=== PATIENT | female | born 2000 | race Caucasian/White ===

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

== ENCOUNTER 2022-10-18 15:18 | Observation (INO) | payer OTHER, SELFPAY ==
[2022-10-18] MEDS ORDERED: Dicyclomine 20 MG/2 ML VIAL ONE (15:39)
[2022-10-18 15:53] LABS: #Monocytes 0.5 thou/uL (0.11-0.59); #Neutrophils 3.6 thou/uL (1.40-6.50); %Basophils 0.2 % (0.0-1.0); %Eosinophils 0.7 % (0.0-10.0); %Monocytes 7.8 % (0.0-10.0); %Neutrophils 58.1 % (42.0-75.0); Hematocrit 36.6 % (36.0-47.0); Hemoglobin 12.3 g/dL (12.0-16.0); Mean Corpuscular HGB CONC 33.6 g/dL (32.0-36.0); Mean Corpuscular Hemoglobin 28.3 pg (27.0-31.0); Mean Corpuscular Volume 84.3 fl (78.0-98.0); Mean Platelet Volume 10.3 fL (7.4-10.4); Platelet Count 236 10x3/uL (130-400); RBC Distribution Width 11.7 % (11.5-14.5); Red Blood Cell (RBC) Count 4.34 mill/uL (4.20-5.40); White Blood Cell (WBC) Count 6.1 10x3/uL (4.8-10.8)
[2022-10-18 16:01] LABS: BHCG - Serum Negative (NEGATIVE); Pregs Control Background? CLEAR/WHITE (CLR/WHITE); Pregs Control Bar Appear? YES (CONTROL BAR)
[2022-10-18 16:17] LABS: ALT (SGPT) 297 U/L (8-55); AST (SGOT) 447 U/L (5-34); Alkaline Phosphatase 129 U/L (40-110); Anion Gap 13 mmol/L (10-20); BUN (Urea Nitrogen) 16 mg/dL (7.0-18.7); Bilirubin, Total 1.4 mg/dL (0.2-1.2); Calc. Creatinine Clearance 0 mL/min (70-130); Calcium 9.1 mg/dL (7.8-10.44); Carbon Dioxide 24 mmol/L (22-29); Chloride 107 mmol/L (98-107); Estimated GFR 101; Globulin 2.8 g/dL (2.4-3.5); Glucose 83 mg/dL (70-105); Lipase 23 U/L (8-78); Protein, Total 6.8 g/dL (6.0-8.3); Sodium 140 mmol/L (136-145)
[2022-10-18] MEDS ORDERED: Morphine 4 MG/ML VIAL ONE (16:48)
[2022-10-18] MEDS ORDERED: Ondansetron PF 4 MG/2 ML Vial ONE (16:48)
[2022-10-18 17:10] LABS: Bilirubin Negative (Negative); Blood, Urine 2+ (Negative); CAUTI Indications for Culture Pelvic or flank pain; Clarity Turbid (Clear); Glucose, Urine (Dipstick) Normal (Negative); Ketone, Urine Negative (Negative); Leukocyte 500 Leu/uL (Negative); Nitrite Negative (Negative); Protein, Urine (Dipstick) 30 mg/dL (Neg-Trace); Specific Gravity, Urine 1.026 (1.002-1.036); WBC/HPF 21-50 HPF (0-3)
[2022-10-18 17:12] LABS: Bacteria/HPF 1+ HPF (None Seen)
[2022-10-18 17:14] LABS: Urine Culture Reflex Yes Yes
[2022-10-18] MEDS ORDERED: cefTRIAXone (ROCEPHIN) 1 GM VIAL ONE (17:50)
[2022-10-18] MEDS ORDERED: Ketorolac Tromethamine 30 MG/ML VIAL IVP PRN (22:02)
[2022-10-18] MEDS ORDERED: LevoFLOXacin 500 mg/D5W 500 MG in Premix Bag 1 BAG IVPB SCH (23:00)
[2022-10-18] MEDS: Sodium Chloride 0.9% 1,000 ML IV SCH (23:24)
[2022-10-18 23:58] VITALS: BMI 34.1
[2022-10-19] MEDS: Sodium Chloride 0.9% 1,000 ML IV SCH ×2 (05:23→10:56)
[2022-10-19] MEDS ORDERED: Bupivacaine HCl 0.5%/Epinephrine 1:200,000/PF 30 ml Vial ONE (07:35)
[2022-10-19] MEDS: ALPRAZolam 0.5 MG TAB PO PRN ×2 (10:48→20:11)
[2022-10-19] MEDS: Morphine 4 MG/ML VIAL SLOW IVP PRN ×2 (10:49)
[2022-10-19] MEDS: Ondansetron PF 4 MG/2 ML Vial IVP PRN ×2 (10:50)
[2022-10-19] MEDS ORDERED: Iopamidol 30 ML ONE (12:41)
[2022-10-19] MEDS ORDERED: Glucagon 1 MG/ML KIT ONE (12:41)
[2022-10-19] MEDS ORDERED: Acetaminophen 500 MG TAB PO SCH (12:45)
[2022-10-19] MEDS ORDERED: Midazolam HCl 2 mg/2 ml Vial ONE (12:54)
[2022-10-19] MEDS ORDERED: Propofol 500 MG/50 ML VIAL ONE (12:54)
[2022-10-19] MEDS ORDERED: fentaNYL 50 mcg/mL 1 mL Vial ONE ×3 (12:54→14:15)
[2022-10-19] MEDS ORDERED: Ondansetron PF 4 MG/2 ML Vial ONE (13:08)
[2022-10-19] MEDS ORDERED: PROPOFOL 200 MG/20 ML VIAL ONE (13:08)
[2022-10-19] MEDS ORDERED: Glycopyrrolate 0.2 MG/ML 5 ML SYRINGE ONE (13:08)
[2022-10-19] MEDS ORDERED: Ketorolac Tromethamine 30 MG/ML VIAL ONE (13:08)
[2022-10-19] MEDS ORDERED: Dexamethasone 20 MG/5 ML VIAL ONE (13:08)
[2022-10-19] MEDS ORDERED: NEOSTIGMINE 3 MG/3 ML SYR 3 MG/3 ML SYRINGE ONE (13:08)
[2022-10-19] MEDS ORDERED: Rocuronium Bromide 10 MG/ML (10ML VIAL) ONE (13:08)
[2022-10-19] MEDS ORDERED: Lidocaine 1% PF 5 ML VIAL ONE (13:08)
[2022-10-19] MEDS ORDERED: Meperidine HCl/PF 25 MG/ML VIAL ONE (14:01)
[2022-10-19] MEDS: Acetaminophen 500 MG TAB PO PRN ×3 (17:12→22:47)
[2022-10-19] MEDS: traMADol HCl 50 MG TAB PO SCH ×4 (17:13→22:47)
[2022-10-19] MEDS: Ibuprofen 600 MG TAB PO PRN ×2 (17:19→22:46)
[2022-10-20] MEDS ORDERED: Meperidine HCl/PF 25 MG/ML VIAL IM SCH ×2 (00:30)
[2022-10-20] MEDS: Ibuprofen 600 MG TAB PO PRN (05:03)
[2022-10-20] MEDS: Acetaminophen 500 MG TAB PO PRN ×2 (05:03→10:40)
[2022-10-20] MEDS: ALPRAZolam 0.5 MG TAB PO PRN (05:03)
[2022-10-20] MEDS: traMADol HCl 50 MG TAB PO SCH ×2 (05:04→10:42)
[2022-10-20 08:21] VITALS: TEMP 97.8
[2022-10-20 12:27] VITALS: BP 119/67
== END 2022-10-20 16:44 | disposition home or self-care (01) ==
LOC: ERS 15:18 → SJJU 18:34
PROVIDERS: ADMIT Specialist; ATTEND Specialist
PROC: 0FT44ZZ Resection of Gallbladder, Percutaneous Endoscopic Approach (ICD-10-PCS; principal; 2022-10-19)
DX: K80.12 Calculus of gallbladder with acute and chronic cholecystitis without obstruction (principal); E80.7 Disorder of bilirubin metabolism, unspecified; Z90.89 Acquired absence of other organs; E66.9 Obesity, unspecified; Z68.34 Body mass index [BMI] 34.0-34.9, adult
CPT/HCPCS: 47532; 76705; 80053; 81001; 83690; 83735; 84703; 85025; 87077; 87086; 88304; 93005; 96361; 96365; 96367; 96372; 96375; 96376; C1889; G0378; J0696; J1100; J1611; J1885; J1956; J2175; J2250; J2270; J2405; J2704; J3010; J7050; Q9967

== ENCOUNTER 2023-01-14 00:36 | Emergency (ER) | payer OTHER ==
[2023-01-14] MEDS ORDERED: methylPREDNISolone Sod Succ/PF 125 MG/2 ML VIAL ONE (00:44)
[2023-01-14] MEDS ORDERED: Dexamethasone 10 MG/ML VIAL ONE (00:44)
[2023-01-14] MEDS ORDERED: diphenhydrAMINE 50 MG/ML VIAL ONE (00:44)
[2023-01-14] MEDS ORDERED: EPINEPHrine 1 MG/10 ML Abboject SYRINGE ONE (00:46)
[2023-01-14] MEDS ORDERED: EPINEPHrine 1 MG/ML AMP ONE (00:47)
[2023-01-14 01:18] LABS: #Monocytes 1.1 thou/uL (0.11-0.59); #Neutrophils 16.5 thou/uL (1.40-6.50); %Basophils 0.1 % (0.0-1.0); %Lymphocytes 16.9 % (21.0-51.0); %Monocytes 5.1 % (0.0-10.0); %Neutrophils 77.6 % (42.0-75.0); Hematocrit 39.1 % (36.0-47.0); Hemoglobin 13.2 g/dL (12.0-16.0); Mean Corpuscular HGB CONC 33.8 g/dL (32.0-36.0); Platelet Count 332 10x3/uL (130-400); RBC Distribution Width 12.9 % (11.5-14.5); Red Blood Cell (RBC) Count 4.71 mill/uL (4.20-5.40); White Blood Cell (WBC) Count 21.3 10x3/uL (4.8-10.8)
[2023-01-14 01:40] LABS: ALT (SGPT) 22 U/L (8-55); AST (SGOT) 13 U/L (5-34); Albumin 4.5 g/dL (3.5-5.0); Alkaline Phosphatase 73 U/L (40-110); Anion Gap 17 mmol/L (10-20); BUN (Urea Nitrogen) 13 mg/dL (7.0-18.7); Bilirubin, Total 0.3 mg/dL (0.2-1.2); Calc. Creatinine Clearance 0 mL/min (70-130); Calcium 9.3 mg/dL (7.8-10.44); Carbon Dioxide 19 mmol/L (22-29); Chloride 107 mmol/L (98-107); Estimated GFR 97; Globulin 2.8 g/dL (2.4-3.5); Glucose 96 mg/dL (70-105); Potassium 3.4 mmol/L (3.5-5.1); Protein, Total 7.3 g/dL (6.0-8.3); Sodium 140 mmol/L (136-145)
== END 2023-01-14 04:39 | disposition home or self-care (01) ==
LOC: ERS 00:36
DX: T78.1XXA Other adverse food reactions, not elsewhere classified, initial encounter (principal); F17.290 Nicotine dependence, other tobacco product, uncomplicated
CPT/HCPCS: 80053; 85025; 96372; 96374; 96375; J0171; J1100; J1200; J2930